=== PATIENT | female | born 1960 ===

== ENCOUNTER → 2021-06-21 | Outpatient (CLI) | payer MEDICARE, MEDICAID ==
--- NOTE | 2021-06-21 10:59 | Diagnostic Imaging Report ---
INDICATION: Right ankle pain AP, oblique and lateral views of the right ankle are obtained. FINDINGS: Plantar calcaneal enthesophyte is noted. No acute fracture or dislocation is identified. No abnormal lytic or sclerotic focus is seen, and there is no radiopaque foreign body. IMPRESSION: No acute abnormality. Dictated by: Dictated on workstation # [id number]
--- NOTE | 2021-06-21 11:09 | Diagnostic Imaging Report ---
INDICATION: Right shoulder pain. TECHNIQUE: AP, transscapular, and axillary views of the right shoulder were obtained. FINDINGS: No acute fracture or malalignment is identified. There is narrowing of the acromioclavicular joint space. Metallic anchor is seen within the humeral head. IMPRESSION: Post operative findings in the right shoulder with acromioclavicular degenerative change. Dictated by: Dictated on workstation # [id number]
== END ==
LOC: ORTHO 07:48
PROVIDERS: ATTEND Orthopaedic Surgery
DX: M19.011 Primary osteoarthritis, right shoulder (principal); M25.571 Pain in right ankle and joints of right foot
CPT/HCPCS: 73030; 73610; G0463; 99213